=== PATIENT | male | born 1945 | race Caucasian/White ===

== ENCOUNTER → 2017-02-06 | Outpatient (CLI) | payer MEDICARE ==
[~2017-02-06] MED LIST: ASPI-496 PO; CHOL20003 PO; DILTIAZEM PO; FINA5TAB4 PO; LUTE10TA PO; TAMS0.4C2 PO; VIT1TABL PO; atorvastatin PO; potassium chloride PO
[2017-02-06 13:14] LABS: HEMOGLOBIN 14.6 g/dL (13.7-18.0)
[2017-02-06 13:17] LABS: BLOOD UREA NITROGEN 20 mg/dL (7-18)
[2017-02-06 13:25] LABS: PATH.CAST-FLAG NOT PRESENT; SPERM-FLAG NOT PRESENT; SRC-FLAG NOT PRESENT; XTAL-FLAG NOT PRESENT; YLC-FLAG NOT PRESENT
[2017-02-06 13:46] LABS: ASPARTATE AMINO TRANSFERASE 16 U/L (15-37); PROSTATE SPECIFIC ANTIGEN 0.86 ng/mL (0.00-4.00); TOTAL IRON BINDING CAPACITY 329 mcg/dL (250-450); TRANSFERRIN 240 mg/dL (200-360)
== END | disposition home or self-care (01) ==
LOC: LAB 09:02
PROVIDERS: ATTEND Nurse Practitioner Primary Care
DX: E55.9 Vitamin D deficiency, unspecified (principal); E78.2 Mixed hyperlipidemia; E88.81 Metabolic syndrome and other insulin resistance; R53.83 Other fatigue; N40.0 Benign prostatic hyperplasia without lower urinary tract symptoms; E61.1 Iron deficiency; R93.1 Abnormal findings on diagnostic imaging of heart and coronary circulation; R01.1 Cardiac murmur, unspecified; I48.2 Chronic atrial fibrillation; G89.29 Other chronic pain
CPT/HCPCS: 36415; 80053; 80061; 81001; 82043; 82306; 82378; 82607; 82728; 82746; 83540; 83550; 84153; 84425; 84443; 84466; 85025; 87086

== ENCOUNTER → 2017-04-14 | Outpatient (CLI) | payer MEDICARE ==
[2017-04-14 13:16] LABS: TOTAL IRON BINDING CAPACITY 273 mcg/dL (250-450)
== END | disposition home or self-care (01) ==
LOC: CFH 11:31
PROVIDERS: ATTEND Nurse Practitioner Primary Care
DX: E61.1 Iron deficiency (principal)
CPT/HCPCS: 36415; 83540; 83550

== ENCOUNTER → 2017-08-13 | Outpatient (CLI) | payer MEDICARE ==
[~2017-08-13] MED LIST changes: +CHOL2000 PO; -CHOL20003 PO; -LUTE10TA PO; +LUTE10TA2 PO
[2017-08-13 12:44] LABS: HEMATOCRIT 47.6 % (39.2-51.8); HEMOGLOBIN 15.7 g/dL (13.7-18.0); WHITE BLOOD COUNT 4.9 x10^3/uL (3.4-10)
[2017-08-13 12:58] LABS: PATH.CAST-FLAG NOT PRESENT; SPERM-FLAG NOT PRESENT; SRC-FLAG NOT PRESENT; XTAL-FLAG NOT PRESENT; YLC-FLAG NOT PRESENT
[2017-08-13 13:00] LABS: BLOOD UREA NITROGEN 21 mg/dL (7-18)
[2017-08-13 13:04] LABS: ASPARTATE AMINO TRANSFERASE 19 U/L (15-37); FERRITIN 76.1 ng/mL (26-388); PROSTATE SPECIFIC ANTIGEN 0.58 ng/mL (0.00-4.00); TOTAL IRON BINDING CAPACITY 300 mcg/dL (250-450); TRANSFERRIN 246 mg/dL (200-360)
== END | disposition home or self-care (01) ==
LOC: CFH 07:36
PROVIDERS: ATTEND Internal Medicine Gastroenterology
DX: I48.2 Chronic atrial fibrillation (principal); K90.0 Celiac disease; D50.9 Iron deficiency anemia, unspecified; K29.70 Gastritis, unspecified, without bleeding; E78.2 Mixed hyperlipidemia; E55.9 Vitamin D deficiency, unspecified; R53.83 Other fatigue; N40.0 Benign prostatic hyperplasia without lower urinary tract symptoms; R93.1 Abnormal findings on diagnostic imaging of heart and coronary circulation; R82.90 Unspecified abnormal findings in urine; R79.9 Abnormal finding of blood chemistry, unspecified
CPT/HCPCS: 36415; 80053; 80061; 81001; 82043; 82248; 82728; 83540; 83550; 84153; 84466; 85025; 87086